=== PATIENT | male | born 1960 | race Hispanic/Latino ===

== ENCOUNTER → 2018-04-20 | Day surgery (SDC) | payer BC ==
[~2018-04-20] MED LIST: ACYCLOVIR200 MG PO; ANASTROZOLE1 MG PO; ARIMIDEX1 MG PO; BUPIVACAINE 0.25%/EPI 30ML SDV INJ ONE; BUPIVACAINE LIPOSOME/PF 266 MG/20 ML IJ ONE; BUPROPION HCL150 M2 PO; BUPROPION XL150 MG PO; CEFOXITIN SOD 1 GM VIAL ONE; CIALIS20 MG PO; DEXAMETHASONE SOD PHOS INJ 4 MG/ML VIAL ONE; FENTANYL CITRATE/PF 100MCG/2 ML INJ ONE; GELATIN SPONGE SZ 100 ONE; HYDROCHLOROTHIA25 MG PO; KETOROLAC TROMETHAMINE 30 MG/ML VIAL ONE; LIDOCAINE HCL 1% LOCAL INJ 20 ML VIAL ONE; LIDOCAINE HCL 2% 30 ML TUBE ONE; LIDOCAINE HCL 2% LOCAL INJ 5 ML SDV VIAL INJ ONE; LISINOPRIL10 MG PO; MIDAZOLAM HCL 5 MG/ML VIAL ONE; MINOCYCLINE HC100 MG PO; ONDANSETRON HCL INJ 2 MG/ML VIAL ONE; POTASSIUM CHLO10 ME1 PO; PROPOFOL IV EMULSION 10 MG/ML 20 ML VIAL ONE; SEVOFLURANE INHAL SOLN 250 ML PEN BTL ONE; TESTOSTERO100 MG/1 M IM; TRUVADA 200 MG1 EACH PO; VIT D PO; VITAMIN D1000 UNI1 PO
--- NOTE | 2018-04-20 15:26 | Operative Report ---
DATE OF PROCEDURE: April 20, 2018 PREOPERATIVE DIAGNOSIS: Thrombosed prolapsing internal and external hemorrhoids. POSTOPERATIVE DIAGNOSIS: Thrombosed prolapsing internal and external hemorrhoids. OPERATION PERFORMED: Internal and external hemorrhoidectomy. ANESTHESIA: General. COMPLICATIONS: None. ESTIMATED BLOOD LOSS: Minimal. DESCRIPTION OF PROCEDURE: With the patient lying in bed in the lithotomy position under good general anesthesia, the perineum was prepped with Betadine solution and draped in the usual manner. A complete anorectal block was then performed with 0.25% Marcaine with epinephrine and Exparel. After this was done, examination revealed there were 2 internal groups at the 4 o'clock and the 8 o'clock position with external components of both plus there was an added external component at the 6 o'clock position. The internal component of both hemorrhoidal groups was then ligated with an 0 chromic suture. The external component was then sharply resected and removed. Hemostasis was then ascertained. The skin and mucosa were then reapproximated with interrupted sutures of 3-0 chromic. The group at 6 o'clock was similarly resected and closed with 3-0 chromic sutures. Hemostasis was ascertained. The Gelfoam pack impregnated with Xylocaine was placed. A dressing was applied. The sponge, lap, and needle count was correct. Patient tolerated the procedure well and returned to the recovery room in stable condition. Job#: [id number] [id number]
== END | disposition home or self-care (01) ==
LOC: OR 07:16
PROVIDERS: ATTEND Surgery
DX: K64.5 Perianal venous thrombosis (principal); K64.8 Other hemorrhoids; I10 Essential (primary) hypertension; B19.10 Unspecified viral hepatitis B without hepatic coma; Z88.8 Allergy status to other drugs, medicaments and biological substances
CPT/HCPCS: 46260; C9290; J0694; J1100; J1885; J2001; J2250; J2405

== ENCOUNTER → 2018-06-22 | Day surgery (SDC) | payer BC ==
[~2018-06-22] MED LIST changes: +ACETAMINOPHEN 1000 MG/100 ML IV ONE; -CEFOXITIN SOD 1 GM VIAL ONE; -LIDOCAINE HCL 1% LOCAL INJ 20 ML VIAL ONE; +MIDAZOLAM HCL 2 MG/2 ML VIAL ONE; -MIDAZOLAM HCL 5 MG/ML VIAL ONE; +PHENYLEPHRINE HCL 1% 10 MG/ML VIAL ONE
--- NOTE | 2018-06-22 14:35 | Operative Report ---
DATE OF PROCEDURE: June 22, 2018 PREOPERATIVE DIAGNOSIS: Rectal polyp and fissure. POSTOPERATIVE DIAGNOSIS: Rectal polyp and fissure. OPERATION PERFORMED: Resection of rectal polyp and fissurectomy. ANESTHESIA: General. COMPLICATIONS: None. ESTIMATED BLOOD LOSS: Minimal. DESCRIPTION OF PROCEDURE: With the patient lying in bed in the supine position under good general anesthesia, the perineum was prepped with Betadine solution and draped in the usual manner. An anorectal block was then performed using Exparel and 1/4 percent Marcaine with epinephrine. After this was done, examination of the rectal area revealed that posteriorly at the 6 o'clock position there was about a centimeter size polypoid mass just above the dentate line which was a palpable mass that could be felt preoperatively. Patient had a posterior fissure also present, but this was rather superficial with a sentinel tag at the end of it. The base of the polypoid mass was then ligated with an 0 chromic suture, and the mass was then resected and sent for pathological examination. Hemostasis was ascertained. The mucosa was then reapproximated with interrupted sutures of 3-0 chromic. The fissure was then debrided, and I did not think that this would require any kind of a sphincterotomy as this was a very superficial thing. The sentinel tag at the end of the fissure was then resected, and the skin at this point was closed with interrupted sutures of 3-0 chromic. A Gelfoam pack impregnated with Xylocaine was placed. A dressing was applied. The sponge, lap and needle count was correct. The patient tolerated the procedure well and returned to the recovery room in stable condition. Job#: [id number]
[2018-06-22 15:05] VITALS: BP 124/84
== END | disposition home or self-care (01) ==
LOC: OR 10:16
PROVIDERS: ATTEND Surgery
DX: K62.82 Dysplasia of anus (principal); K60.2 Anal fissure, unspecified; A63.0 Anogenital (venereal) warts; Z21 Asymptomatic human immunodeficiency virus [HIV] infection status; B19.10 Unspecified viral hepatitis B without hepatic coma; J45.909 Unspecified asthma, uncomplicated; I10 Essential (primary) hypertension; K21.9 Gastro-esophageal reflux disease without esophagitis; F41.9 Anxiety disorder, unspecified; F32.9 Major depressive disorder, single episode, unspecified
CPT/HCPCS: 45171; 46200; 88305; 88342; C9290; J1100; J1885; J2001; J2250; J2370; J2405; 88304

== ENCOUNTER → 2020-08-25 | Day surgery (SDC) | payer BC ==
[~2020-08-25] MED LIST changes: -ACETAMINOPHEN 1000 MG/100 ML IV ONE; -BUPIVACAINE 0.25%/EPI 30ML SDV INJ ONE; -BUPIVACAINE LIPOSOME/PF 266 MG/20 ML IJ ONE; +DESCOVY 200-251 EACH PO; -DEXAMETHASONE SOD PHOS INJ 4 MG/ML VIAL ONE; +EPHEDRINE SULFATE INJ 50 MG/ML VIAL ONE; -FENTANYL CITRATE/PF 100MCG/2 ML INJ ONE; -GELATIN SPONGE SZ 100 ONE; +GLYCOPYRROLATE INJ 0.2 MG/ML VIAL ONE; -KETOROLAC TROMETHAMINE 30 MG/ML VIAL ONE; +LABETALOL HCL 5 MG/ML 20ML VIAL ONE; -LIDOCAINE HCL 2% 30 ML TUBE ONE; +MELOXICAM7.5 MG PO; -ONDANSETRON HCL INJ 2 MG/ML VIAL ONE; +OR PHACO EYE KIT ONE; -PHENYLEPHRINE HCL 1% 10 MG/ML VIAL ONE; +PREOP PHACO EYE KIT ONE; +PROTONIX20 MG PO; +WELLBUTRIN SR150 MG PO
[2020-08-25 12:50] VITALS: BP 148/85
== END | disposition home or self-care (01) ==
LOC: OR 08:36
PROVIDERS: ATTEND Ophthalmology
DX: H25.12 Age-related nuclear cataract, left eye (principal); I10 Essential (primary) hypertension; K21.9 Gastro-esophageal reflux disease without esophagitis; R06.6 Hiccough; R09.81 Nasal congestion; E29.1 Testicular hypofunction; F32.9 Major depressive disorder, single episode, unspecified; Z88.8 Allergy status to other drugs, medicaments and biological substances; Z86.19 Personal history of other infectious and parasitic diseases
CPT/HCPCS: 66984; J2001; J2704; J3490; V2632; J2250

== ENCOUNTER → 2020-09-08 | Day surgery (SDC) | payer BC ==
[~2020-09-08] MED LIST changes: -EPHEDRINE SULFATE INJ 50 MG/ML VIAL ONE; -GLYCOPYRROLATE INJ 0.2 MG/ML VIAL ONE; -LABETALOL HCL 5 MG/ML 20ML VIAL ONE; -LIDOCAINE HCL 2% LOCAL INJ 5 ML SDV VIAL INJ ONE; -MIDAZOLAM HCL 2 MG/2 ML VIAL ONE; +MIDAZOLAM HCL 5 MG/ML VIAL ONE; -PROPOFOL IV EMULSION 10 MG/ML 20 ML VIAL ONE; -SEVOFLURANE INHAL SOLN 250 ML PEN BTL ONE
[2020-09-08 11:45] VITALS: BP 146/95
== END | disposition home or self-care (01) ==
LOC: OR 08:39
PROVIDERS: ATTEND Ophthalmology
DX: H25.11 Age-related nuclear cataract, right eye (principal); Z88.8 Allergy status to other drugs, medicaments and biological substances; B19.10 Unspecified viral hepatitis B without hepatic coma; I10 Essential (primary) hypertension; E29.1 Testicular hypofunction; F32.9 Major depressive disorder, single episode, unspecified
CPT/HCPCS: 66984; J2250; V2632

== ENCOUNTER → 2024-10-15 | Day surgery (SDC) | payer BC ==
[~2024-10-15] MED LIST changes: +ACETAMINOPHEN 1000 MG/100 ML 100 ML IV ONE; +ATACAND16 MG PO; +AUGMENTIN 500-1 EACH PO; +BUPIVACAINE LIPOSOME/PF 266 MG/20 ML IJ ONE; +CARVEDILOL3.125 MG PO; +DEXAMETHASONE SOD PHOS INJ 4 MG/ML SDV ONE; +EPHEDRINE SULFATE INJ 50 MG/ML VIAL ONE; +FENTANYL CITRATE/PF 100MCG/2 ML INJ ONE; +LIDOCAINE HCL 2% LOCAL INJ 5 ML SDV VIAL INJ ONE; +MIDAZOLAM HCL 2 MG/2 ML VIAL ONE; -MIDAZOLAM HCL 5 MG/ML VIAL ONE; +MINOXIDIL2.5 MG PO; +ONDANSETRON HCL INJ 2MG/ML 2ML 2 MG/ML VIAL ONE; -OR PHACO EYE KIT ONE; +PHENYLEPHRINE HCL 1% 10 MG/ML VIAL ONE; -PREOP PHACO EYE KIT ONE; +PROPOFOL IV EMULSION 10 MG/ML 20 ML VIAL ONE; +ROCURONIUM BROMIDE 1 ML IV ONE; +SUGAMMADEX SODIUM 200 MG/2 ML VIAL IV ONE; +VALTREX500 MG PO
[2024-10-15] MEDS: LACTATED RINGER'S 1,000 ML ONE (09:54)
[2024-10-15 10:37] LABS: BASOPHILS # (AUTO) 0.1 (0.0-0.1); BASOPHILS % 0.7 % (0.0-1.0); EOSINOPHILS # (AUTO) 0.1 (0.0-0.4); EOSINOPHILS % 1.9 % (0.0-6.0); HEMATOCRIT 47.1 % (38.2-49.6); HEMOGLOBIN 15.9 g/dL (14.0-18.0); LYMPHOCYTES # (AUTO) 1.9 (1.0-3.2); LYMPHOCYTES % 27.9 % (18.0-39.1); MEAN CORPUSCULAR HEMOGLOBIN 28.8 pg (28-32); MEAN CORPUSCULAR HGB CONC 33.8 g/dL (31-35); MEAN CORPUSCULAR VOLUME 85.3 fL (81-99); MONOCYTES # (AUTO) 0.4 (0.2-0.8); MONOCYTES % 6.4 % (4.4-11.3); NEUTROPHILS # (AUTO) 4.3 (2.1-6.9); NEUTROPHILS % 62.1 % (38.7-80.0); PLATELET COUNT 316 x10e3/uL (140-360); RED BLOOD COUNT 5.52 x10e6/uL (4.3-5.7); WHITE BLOOD COUNT 6.89 x10e3/uL (4.8-10.8)
[2024-10-15 10:50] LABS: ANION GAP 13.3 mmol/L (8-16); CALCIUM 9.4 mg/dL (8.4-10.2); CREATININE, SERUM 1.1 mg/dL (0.72-1.25); POTASSIUM 4.3 mmol/L (3.5-5.1)
[2024-10-15 13:15] VITALS: TEMP 97.7
[2024-10-15 14:55] VITALS: BP 156/93; PULSE 68; RESP 16; O2SAT 100
== END | disposition home or self-care (01) ==
LOC: OR 09:20
PROVIDERS: ATTEND Surgery
DX: D49.0 Neoplasm of unspecified behavior of digestive system (principal); K60.2 Anal fissure, unspecified; K64.4 Residual hemorrhoidal skin tags; I10 Essential (primary) hypertension; K21.9 Gastro-esophageal reflux disease without esophagitis; N40.0 Benign prostatic hyperplasia without lower urinary tract symptoms; Z79.1 Long term (current) use of non-steroidal anti-inflammatories (NSAID); Z79.899 Other long term (current) drug therapy
CPT/HCPCS: 36415; 46200; 71046; 80048; 85025; 88305; 93005; C9290; J0131; J0690; J1100; J2003; J2250; J2371; J2405; J2704; J3010; J7121